=== PATIENT | female | born 1985 | race Caucasian/White ===

== ENCOUNTER 2016-10-29 21:58 | Emergency (ER) | payer OTHER ==
[~2016-10-29] VITALS: Ht 154.9 cm; Wt 83.1 kg
[~2016-10-29 21:58] MED LIST: OXAYDO5 MG PO; PRILOSEC40 MG PO; ULTRAM50 MG PO; YAZ1 TABLET PO
[2016-10-29 22:13] VITALS: BP 125/80
[2016-10-30 00:54] LABS: HEMATOCRIT 38.1 % (36.0-46.0); MCH 29.9 PG (29.0-34.0); MCHC 33.6 G/DL (30.0-36.0); MEAN PLAT.VOLUME 11.6 uM^3 (9.5-12.4); PLATELET COUNT 263 K/uL (156-360); RBC DIS.WIDTH-CV 13.5 % (11.8-14.6); RED BLOOD COUNT 4.28 M/uL (3.80-5.20); WHITE BLOOD COUNT 10.1 K/uL (4.1-10.2)
[2016-10-30 01:05] LABS: CHLORIDE 107 mEq/L (99-109); POTASSIUM 3.1 mEq/L (3.7-5.4); SODIUM 143 mEq/L (136-147)
[2016-10-30 01:07] LABS: GLUCOSE 115 mg/dL (70-99)
[2016-10-30 01:08] LABS: ANION GAP 7 MEQ/L (2-14)
[2016-10-30 01:11] LABS: GFR ESTIMATE (CALCULATED) > 59 mL/min/; UREA NITROGEN (BUN) 11 mg/dL (9-23)
[2016-10-30 01:20] LABS: QUANTITATIVE HCG < 4.0 MIU/ML
== END 2016-10-30 02:20 | disposition left against medical advice (07) ==
LOC: EME 21:58
PROVIDERS: Emergency Medicine
DX: R51 Headache (principal); E86.0 Dehydration; E87.6 Hypokalemia; F17.200 Nicotine dependence, unspecified, uncomplicated
CPT/HCPCS: 80048; 81003; 84702; 85027; 99281; 99285; J0780; J1100; J1200; J7030